=== PATIENT | male | born 1990 | race Caucasian/White ===

== ENCOUNTER 2016-08-27 11:00 | Emergency (ER) | payer OTHER ==
[2016-08-27 11:07] VITALS: RESP 18
[2016-08-27] MEDS ORDERED: NS 1,000 ML IV ONE (12:00)
[2016-08-27] MEDS ORDERED: ONDANSETRON 4 MG/2 ML VIAL IVP ONE (12:00)
--- NOTE | 2016-08-27 12:03 | EDPHY ---
H & P Time Seen by Provider: 08/27/16 11:51 HPI/ROS: CHIEF COMPLAINT: Vomiting HISTORY OF PRESENT ILLNESS: 25-year-old male presents to the emergency department with multiple episodes of vomiting last night. The patient is staying at [facility] over the last 1 month and they are adjusting his medications. He has been on Clozaril for at least 1 year. He has been on lithium in the past but they restarted this 1 week ago. He was sent to the emergency department for evaluation. No diarrhea. No abdominal pain. He still feels slightly nauseous. No chest pain or difficulty breathing. No headache. No reported trauma. No pain in upper or lower extremities. REVIEW OF SYSTEMS: Constitutional: No fever, no chills. Eyes: No double or blurry vision. ENT: No sore throat. Respiratory: No cough, no shortness of breath. Cardiac: No chest pain. Gastrointestinal: Vomiting as above. No abdominal pain or diarrhea. Genitourinary: No dysuria. Musculoskeletal: No neck or back pain. Skin: No rashes. Neurological: No headache. Past Medical/Surgical History: Bipolar, schizoaffective disorder Social History: Single, currently staying at [facility] Smoking Status: Never smoked Physical Exam: General Appearance: Alert, no distress. 137/82, heart rate 92, 95% on room air , afebrile and nontoxic-appearing. Eyes: Pupils equal and round. Extraocular motions are all intact. ENT: Mouth: Mucous membranes moist. Respiratory: No wheezing, rhonchi, or rales, lungs are clear to auscultation. Cardiovascular: Regular rate and rhythm. Gastrointestinal: Abdomen is soft and nontender, no masses, no rebound or guarding, bowel sounds normal. Neurological: Alert and oriented x 3, cranial nerves II through XII grossly intact Skin: Warm and dry, no rashes. Musculoskeletal: Nontender to palpate along the cervical, thoracic or lumbar spine. Neck is supple. Extremities: Full range of motion and no peripheral edema. Psychiatric: Patient is oriented X 3, there is no agitation. Constitutional: Initial Vital Signs Temperature (C) 36.7 C 08/27/16 11:03 Heart Rate 92 08/27/16 11:03 Respiratory Rate 18 08/27/16 11:03 Blood Pressure 137/82 H 08/27/16 11:03 O2 Sat (%) 95 03/03/17 11:03 O2 Delivery Mode Room Air Allergies/Adverse Reactions: No Known Allergies Allergy (Verified 08/27/16 11:08) Home Medications: Medication Instructions Recorded cloZAPine [Clozaril (*)] 100 mg PO HS #15 tab 05/04/16 Medical Decision Making ED Course/Re-evaluation: 25-year-old male presents to the emergency department with multiple episodes of vomiting last night. He was sent by [facility] for evaluation. Laboratory studies were all within normal limits. His [place] which was restarted just 1 week ago is therapeutic at 0.6. The patient has a normal examination. He is comfortable being discharged home. The patient was drinking 7 up without any recurring vomiting. Differential Diagnosis: Including but not limited to dehydration, gastritis, viral illness, medication reaction - Data Points Laboratory Results: Laboratory Results 08/27/16 12:20 08/27/16 12:20 08/27/16 08/27/16 12:20 12:20 WBC 12.61 10^3/uL H 10^3/uL (3.80-9.50) RBC 5.21 10^6/uL 10^6/uL (4.40-6.38) Hgb 15.6 g/dL g/dL (13.7-17.5) Hct 45.8 % % (40.0-51.0) MCV 87.9 fL fL (81.5-99.8) MCH 29.9 pg pg (27.9-34.1) MCHC 34.1 g/dL g/dL (32.4-36.7) RDW 13.0 % % (11.5-15.2) Plt Count 362 10^3/uL 10^3/uL (150-400) MPV 10.3 fL fL (8.7-11.7) Neut % (Auto) 62.9 % % (39.3-74.2) Lymph % (Auto) 19.7 % % (15.0-45.0) [place] % (Auto) 12.0 % % (4.5-13.0) Eos % (Auto) 4.1 % % (0.6-7.6) Baso % (Auto) 0.5 % % (0.3-1.7) Nucleat RBC Rel Count 0.0 % % (0.0-0.2) Absolute Neuts (auto) 7.94 10^3/uL H 10^3/uL (1.70-6.50) Absolute Lymphs (auto) 2.48 10^3/uL 10^3/uL (1.00-3.00) Absolute Monos (auto) 1.51 10^3/uL H 10^3/uL (0.30-0.80) Absolute Eos (auto) 0.52 10^3/uL H 10^3/uL (0.03-0.40) Absolute Basos (auto) 0.06 10^3/uL 10^3/uL (0.02-0.10) Absolute Nucleated RBC 0.00 10^3/uL 10^3/uL (0-0.01) Immature Gran % 0.8 % % (0.0-1.1) Immature Gran # 0.10 10^3/uL 10^3/uL (0.00-0.10) Sodium 143 mEq/L mEq/L (134-144) Potassium 4.2 mEq/L mEq/L (3.5-5.2) Chloride 106 mEq/L mEq/L (97-110) Carbon Dioxide 25 mEq/l mEq/l (22-31) Anion Gap 12 mEq/L mEq/L (8-16) BUN 14 mg/dL mg/dL (7-23) Creatinine 0.7 mg/dL mg/dL (0.7-1.3) Estimated GFR > 60 Glucose 101 mg/dL H mg/dL (70-100) Calcium 9.5 mg/dL mg/dL (8.5-10.4) Total Bilirubin 0.8 mg/dL mg/dL (0.1-1.4) Conjugated Bilirubin 0.3 mg/dL mg/dL (0.0-0.5) Unconjugated Bilirubin 0.5 mg/dL mg/dL (0.0-1.1) AST 26 IU/L IU/L (17-59) ALT 78 IU/L H IU/L (21-72) Alkaline Phosphatase 51 IU/L IU/L (38-126) Total Protein 7.9 g/dL g/dL (6.3-8.2) Albumin 4.7 g/dL g/dL (3.5-5.0) [place] 0.6 mEq/L mEq/L (0.6-1.2) Medications Given: Discontinued Medications Sodium Chloride (Ns) 1,000 mls @ 0 mls/hr IV ONCE ONE PRN Reason: Wide Open Stop: 08/27/16 12:01 Last Admin: 08/27/16 12:20 Dose: 1,000 mls Ondansetron HCl (Zofran) 4 mg IVP EDNOW ONE Stop: 08/27/16 12:01 Last Admin: 08/27/16 12:19 Dose: 4 mg Departure - Departure Disposition: Home, Routine, Self-Care Clinical Impression: Vomiting Qualifiers: Vomiting type: unspecified Vomiting Intractability: non-intractable Nausea presence: with nausea Qualified Code(s): R11.2 - Nausea with vomiting, unspecified Condition: Good Instructions: Acute Nausea and Vomiting (ED) Additional Instructions: Clear liquids and then slowly advance diet as tolerated. Continue medications as prescribed. Referrals: Alejandro Rowland MD [Medical Doctor] - As per Instructions (Primary care provider transmission specialist)
--- NOTE | 2016-08-27 12:10 | CPEKG ---
Heart Rate: 88 RR Interval: 682 P-R Interval: 152 QRSD Interval: 96 QT Interval: 376 QTC Interval: 455 P Gleason: 47 QRS Gleason: 58 T Wave Gleason: -5 EKG Severity - BORDERLINE ECG - EKG Impression: SINUS RHYTHM EKG Impression: BORDERLINE T ABNORMALITIES, INFERIOR LEADS Electronically Signed By: Clarita Evans 27-Aug-2016 13:19:38
[2016-08-27 12:35] LABS: % IMMATURE GRANULYOCYTES 0.8 % (0.0-1.1); ADD DIFF? NO; ADD MORPH? NO; ADD SCAN? NO; ATYPICAL LYMPHOCYTE FLAG 0 (0-99); FRAGMENT RBC FLAG 0 (0-99); HEMATOCRIT 45.8 % (40.0-51.0); HEMOGLOBIN 15.6 g/dL (13.7-17.5); LEFT SHIFT FLG 0 (0-99); LIPEMIA HEMOLYSIS FLAG 90 (0-99); MEAN CELL HEMOGLOBIN 29.9 pg (27.9-34.1); MEAN CELL HEMOGLOBIN CONCENTR. 34.1 g/dL (32.4-36.7); MEAN CELL VOLUME 87.9 fL (81.5-99.8); MEAN PLATELET VOLUME 10.3 fL (8.7-11.7); PLATELET CLUMPS FLAG 10 (0-99); PLATELET COUNT 362 10^3/uL (150-400); RED BLOOD CELL COUNT 5.21 10^6/uL (4.40-6.38)
[2016-08-27 12:43] LABS: ALANINE AMINOTRANSFERASE 78 IU/L (21-72); ALBUMIN 4.7 g/dL (3.5-5.0); ALKALINE PHOSPHATASE 51 IU/L (38-126); ANION GAP 12 mEq/L (8-16); ASPARTATE AMINOTRANSFERASE 26 IU/L (17-59); BILIRUBIN,TOTAL 0.8 mg/dL (0.1-1.4); BILIRUBIN-CONJUGATED 0.3 mg/dL (0.0-0.5); BILIRUBIN-UNCONJUGATED 0.5 mg/dL (0.0-1.1); CALCIUM 9.5 mg/dL (8.5-10.4); CARBON DIOXIDE 25 mEq/l (22-31); CHLORIDE 106 mEq/L (97-110); CREATININE 0.7 mg/dL (0.7-1.3); GLOMERULAR FILTRATION RATE > 60; GLUCOSE 101 mg/dL (70-100); LITHIUM 0.6 mEq/L (0.6-1.2); POTASSIUM 4.2 mEq/L (3.5-5.2); SODIUM 143 mEq/L (134-144); TOTAL PROTEIN 7.9 g/dL (6.3-8.2)
[2016-08-27 13:23] VITALS: BP 131/83; PULSE 82; TEMP 97.7; O2SAT 97
== END 2016-08-27 13:20 | disposition home or self-care (01) ==
DX: R11.2 Nausea with vomiting, unspecified (principal)
CPT/HCPCS: 96374; J2405